=== PATIENT | female | born 1985 | race Two or more races ===

== ENCOUNTER 2021-10-05 07:18 | Outpatient (REF) | payer OTHER, SELFPAY ==
[2021-10-05 11:24] LABS: MANUAL DIFF FLAG NO
[2021-10-05 11:26] LABS: Basophils Percent Auto 0.5 % (0-2); Eosinophils Absolute Auto 0.3 X10*3/uL (0.0-0.4); Eosinophils Percent Auto 4.2 % (0-4); Hematocrit 39.1 % (37.0-47.0); Hemoglobin 13.4 g/dl (12.0-16.0); Imm Gran Abs Auto 0.01 X10*3/uL (0.00-0.03); Imm Gran Pct Auto 0.2 % (0.0-0.4); Lymphocytes Absolute Auto 2.4 X10*3/uL (1.2-4.9); Lymphocytes Percent Auto 38.8 % (20-40); Mean Corpuscular HGB Conc 34.3 g/dl (31.0-35.0); Mean Corpuscular Hemoglobin 29.8 pg (27.0-33.0); Mean Corpuscular Volume 86.9 fL (80.0-98.0); Mean Platelet Volume 10.5 fL (9.4-12.3); Monocytes Absolute Auto 0.4 X10*3/uL (0.1-1.2); Neutrophils Absolute Auto 3.1 x10*3/uL (2.0-8.3); Neutrophils Percent Auto 49.3 % (45-73); Platelet Count 271 X10*3/uL (160-400); Red Cell Distribution Width 12.8 % (11.0-16.0); White Blood Count 6.3 X10*3/uL (4.8-10.8)
[2021-10-05 11:57] LABS: Alanine Aminotransferase 20 U/L (0-31); Albumin Level 4.6 g/dL (3.5-5.0); Alkaline Phosphatase 54 U/L (39-117); Anion Gap 11 (12-20); Aspartate Amino Transferase 21 U/L (5-31); Bilirubin Total 0.9 mg/dL (0.0-1.0); Blood Urea Nitrogen 10 mg/dL (9-16); Calcium 10.1 mg/dL (8.4-10.2); Carbon Dioxide 26 mmol/L (22-29); Chloride 104 mmol/L (96-108); Cholesterol 167 mg/dL; Estimated Glomerular Filt Rate > 60; Glucose Fasting 93 mg/dL (60-99); HDL Cholesterol 35 mg/dL; LDL Cholesterol Calculated 73 mg/dl; Sodium 137 mmol/L (135-145); Total Protein 7.7 g/dL (6.5-8.0); Triglycerides 296 mg/dL
[2021-10-05 12:07] LABS: TSH reflex Free T4 65.77 uIU/mL (0.32-4.0)
[2021-10-05 13:20] LABS: Free T4 (Free Thyroxine) 0.47 ng/dL (0.71-1.85)
[2021-10-09 13:41] LABS: Vitamin D 25-OH, D2 <4 ng/mL; Vitamin D 25-OH, D3 12 ng/mL; Vitamin D 25-OH, Total 12 ng/mL (30-100)
== END 2021-10-05 07:19 | disposition home or self-care (01) ==
LOC: HO.HMGCLDS 07:18
PROVIDERS: Visit Provider Internal Medicine
DX: M54.50 Low back pain, unspecified (principal); G89.29 Other chronic pain; E66.09 Other obesity due to excess calories; K52.9 Noninfective gastroenteritis and colitis, unspecified; Z30.09 Encounter for other general counseling and advice on contraception
CPT/HCPCS: 36415; 80053; 80061; 82306; 84439; 84443; 85025

== ENCOUNTER 2022-01-19 11:11 | Outpatient (REF) | payer OTHER, SELFPAY ==
[2022-01-19 14:17] LABS: TSH reflex Free T4 1.16 uIU/mL (0.32-4.0)
[2022-01-22 13:52] LABS: Thyroglobulin Antibodies 3 IU/mL (< or = 1)
== END 2022-01-19 11:12 | disposition home or self-care (01) ==
LOC: HO.HMGCLDS 11:11
PROVIDERS: PCP Internal Medicine; Visit Provider Internal Medicine
DX: R79.89 Other specified abnormal findings of blood chemistry (principal)
CPT/HCPCS: 36415; 84443; 86800

== ENCOUNTER 2022-02-09 08:00 | Outpatient (RCR) | payer OTHER, SELFPAY ==
--- NOTE | 2022-02-02 10:21 | MHC.PT.EP ---
[facility] [place] [facility] [place] [facility] [place] [facility] [address] Lemuel Jauregui [address] [phone] F: [phone] F: [phone] F: [phone] F: [phone] Physical Therapy Plan of Care Date of Evaluation: Date of Surgery: Diagnosis: low back pain, dosalgia Assessment: 36 y/o F referred to PT with low back pain, dorsalgia. She arrives with who assists with interpreting. 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 Denies significant PMH. Examination shows decreased cervical R rotation, decreased lumbar AROM, decreased hip and scapular strength, impaired postural awareness and pain. Recommend PT 2x/week (pt would prefer 1x/week) for 5 weeks to address impairments, implement HEP, and optimize functional mobility Frequency and Duration: The patient will be seen 1x/week for 5 weeks Short Term Goals: 3 weeks 1. I with HEP 2. Improve TAC without breath holding and glut clenching 5/5x (IR unable) 3. 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 I with HEP and self management of sx 2. Pt will be able to perform grooming with pain < 3/10 3. Pt will be able to carry 10# grocery bag with proper mechanics and pain < 3/10 4. Improve hip flexion strength to 4+/5 Treatment Plan: Modalities to reduce pain, spasms and effusion. Manual therapy to restore motion and function. Therapeutic exercise to improve strength and flexibility. Neuromuscular re-education for posture and balance. Therapeutic activities to return to functional activities of daily living. Electronically signed by: Halima Rios PT Please sign and return to therapist. Thank you for your referral.
--- NOTE | 2022-02-26 10:41 | MHC.PT.DC ---
[facility] [place] [facility] [place] [facility] [place] [facility] [address] Lemuel Jauregui [address] [phone] F: [phone] F: [phone] F: [phone] F: [phone] Physical Therapy Discharge Report Diagnosis: low back pain, dosalgia Date of Surgery: Date of Evaluation: 02/02/22 Date of Discharge: 02/26/22 Treatments to Date: 2 Cancellations to Date: 0 No Shows to Date: 2 Discharge Status: Visit Non-compliance Discharge Summary: Pt with two consecutive no show visits and is therefore d/c. At time of last visit, she was I with HEP and making gains in body awareness and exercises to decrease pain. Electronically signed by: Halima Rios PT Please sign and return to therapist. Thank you for your referral.
== END 2022-02-26 10:42 | disposition home or self-care (01) ==
LOC: HO.PTCHIC 08:00
PROVIDERS: PCP Internal Medicine; Visit Provider Internal Medicine
DX: M54.50 Low back pain, unspecified (principal); M54.9 Dorsalgia, unspecified
CPT/HCPCS: 97110; 97112; 97162

== ENCOUNTER 2022-09-14 07:56 | Outpatient (REF) | payer OTHER, SELFPAY ==
[2022-09-14 11:17] LABS: MANUAL DIFF FLAG NO
[2022-09-14 11:35] LABS: Basophils Percent Auto 0.3 % (0-2); Eosinophils Absolute Auto 0.1 X10*3/uL (0.0-0.4); Eosinophils Percent Auto 0.6 % (0-4); Hematocrit 39.3 % (37.0-47.0); Hemoglobin 13.2 g/dl (12.0-16.0); Imm Gran Abs Auto 0.05 X10*3/uL (0.00-0.03); Imm Gran Pct Auto 0.4 % (0.0-0.4); Lymphocytes Absolute Auto 2.3 X10*3/uL (1.2-4.9); Lymphocytes Percent Auto 17.8 % (20-40); Mean Corpuscular HGB Conc 33.6 g/dl (31.0-35.0); Mean Corpuscular Hemoglobin 28.7 pg (27.0-33.0); Mean Corpuscular Volume 85.4 fL (80.0-98.0); Mean Platelet Volume 11.1 fL (9.4-12.3); Monocytes Absolute Auto 1.4 X10*3/uL (0.1-1.2); Monocytes Percent Auto 10.5 % (2-11); Neutrophils Absolute Auto 9.1 x10*3/uL (2.0-8.3); Neutrophils Percent Auto 70.4 % (45-73); Platelet Count 225 X10*3/uL (160-400); Red Cell Distribution Width 12.4 % (11.0-16.0); White Blood Count 12.9 X10*3/uL (4.8-10.8)
[2022-09-14 11:58] LABS: Alanine Aminotransferase 15 U/L (0-31); Albumin Level 4.3 g/dL (3.5-5.0); Alkaline Phosphatase 53 U/L (39-117); Anion Gap 12 (12-20); Aspartate Amino Transferase 13 U/L (5-31); Bilirubin Total 0.8 mg/dL (0.0-1.0); Blood Urea Nitrogen 9 mg/dL (9-16); Calcium 9.3 mg/dL (8.4-10.2); Carbon Dioxide 27 mmol/L (22-29); Chloride 103 mmol/L (96-108); Cholesterol 149 mg/dL; Estimated Glomerular Filt Rate > 60; Glucose Fasting 107 mg/dL (60-99); HDL Cholesterol 39 mg/dL; LDL Cholesterol Calculated 90 mg/dl; Potassium 3.9 mmol/L (3.3-5.1); Sodium 138 mmol/L (135-145); TSH reflex Free T4 2.35 uIU/mL (0.32-4.0); Total Protein 7.1 g/dL (6.5-8.0); Triglycerides 102 mg/dL
[2022-09-18 16:58] LABS: Vitamin D 25-OH, D2 <4 ng/mL; Vitamin D 25-OH, D3 13 ng/mL; Vitamin D 25-OH, Total 13 ng/mL (30-100)
== END 2022-09-14 07:57 | disposition home or self-care (01) ==
LOC: HO.HMGCLDS 07:56
PROVIDERS: PCP Internal Medicine; Visit Provider Internal Medicine
DX: G89.29 Other chronic pain (principal); M54.50 Low back pain, unspecified; R79.89 Other specified abnormal findings of blood chemistry; Z91.09 Other allergy status, other than to drugs and biological substances
CPT/HCPCS: 36415; 80053; 80061; 82306; 84443; 85025